=== PATIENT | male | born 1975 | race Asian ===

== ENCOUNTER 2017-06-08 18:39 | Emergency (ER) | payer MEDICAID ==
[~2017-06-08] VITALS: Ht 170.2 cm; Wt 65.0 kg
[2017-06-09] MEDS ORDERED: PERMETHRIN 5% CREAM 60GM TOP ONE (10:45)
[2017-06-09 12:10] VITALS: BP 129/78
== END 2017-06-09 17:55 | disposition home or self-care (01) ==
LOC: ER 19:33
DX: B86 Scabies (principal); E11.9 Type 2 diabetes mellitus without complications; F20.9 Schizophrenia, unspecified
CPT/HCPCS: 99283; Z7610

== ENCOUNTER 2022-01-25 12:54 | Emergency (ER) | payer MEDICAID ==
[~2022-01-25] VITALS: Ht 165.1 cm; Wt 71.0 kg
[2022-01-25] MEDS ORDERED: AMLODIPINE 5MG TABLET PO ONE (13:45)
[2022-01-25 13:59] LABS: EOSINOPHILS % 2.5 % (0.0-5.0); HEMATOCRIT. 34.8 % (42.0-52.0); HEMOGLOBIN. 11.8 g/dL (14.0-18.0); LYMPHOCYTES % 28.2 % (20.0-50.0); MEAN CORPUSCULAR HEMOGLOBIN 29.7 pg (28.0-32.0); MEAN CORPUSCULAR VOLUME 87.6 fL (80.0-94.0); MEAN PLATELET VOLUME 8.1 fl (7.4-10.4); MONOCYTES % 7.1 % (2.0-8.0); NEUTROPHILS % 61.2 % (40.0-76.0); PLATELET 250 x1000/uL (130-400); RED BLOOD CELL COUNT 3.97 mill/uL (4.7-6.1); RED CELL DISTRIBUTION WIDTH 12.9 % (11.6-14.6)
[2022-01-25 14:10] LABS: CHLORIDE 95 mEq/L (98-107)
[2022-01-25] MEDS ORDERED: AMLO5TAB4 MT ×2 (15:21→15:22)
[2022-01-25 15:32] VITALS: BP 162/84
== END 2022-01-25 15:35 | disposition home or self-care (01) ==
LOC: ER 13:46
DX: I10 Essential (primary) hypertension (principal); E11.9 Type 2 diabetes mellitus without complications; F20.9 Schizophrenia, unspecified
CPT/HCPCS: 36415; 80053; 84484; 85025; 93005; 99284